=== PATIENT | female | born 1960 | race Caucasian/White ===

== ENCOUNTER 2017-06-27 12:31 | Emergency (ER) | payer BC ==
[2017-06-27 13:23] VITALS: BP 154/88
--- NOTE | 2017-06-27 14:30 | UC ---
Dizzy HPI HPI Summary: Patient presents to the with CC of dizziness while at work today. The episode came on suddenly when turning around too quickly. She states she felt like the room was spinning for approximately 1 minute and immediately after spontaneous resolution became nauseous. She denies any known healthy problems, but does not have a PCP. She denies any medication use and states she is otherwise healthy. She is tearful on exam. She states all brothers and mother and father all had HTN and cancers and all from such. She has never had these symptoms before and is concerned they may be d/t something more serious. She denies SOB, chest pain, BECERRIL. Has never had high BP, but today showed 154/88. - History Of Current Complaint Chief Complaint: UCDizziness Stated Complaint: NAUSEA Time Seen by Provider: 06/27/17 13:44 Hx Obtained From: Patient Hx Last Menstrual Period: n/a ?: No Onset/Duration: Sudden Onset Timing: Minutes Severity Initially: Moderate Severity Currently: Moderate Pain Intensity: 8 Pain Scale Used: 0-10 Numeric Character: Room Spinning, Dizzy Aggravating Factor(s): Position Change, Change In Head Position Alleviating Factor(s): Rest, Closing Eyes Associated Signs And Symptoms: Positive: Nausea - Risk Factors Cardiac Risk Factors: Negative CVA Risk Factor: Negative - Allergies/Home Medications Allergies/Adverse Reactions: Allergies Allergy/AdvReac Type Severity Reaction Status Date / Time No Known Allergies Allergy Verified 06/27/17 13:23 PMH/Surg Hx/FS Hx/Imm Hx Previously Healthy: Yes - Surgical History Surgical History: Yes Surgery Procedure, Year, and Place: HYSTERECTOMY , 2013, [facility]. APPENDECTOMY 1979 CSECTION, 1987. RIGHT KNEE, 2015 , [facility]. CATARACT -06/2016. MESH -LIFT ON BLADDER - FOR INCONTINENCE - Family History Known Family History: Positive: Blood Disorder - blood clots, father and brother - Social History Occupation: Employed Full-time Lives: With Family Alcohol Use: None Substance Use Type: None Smoking Status (MU): Former Smoker Amount Used/How Often: 1/2 PACK A DAY Have You Smoked in the Last Year: No When Did the Patient Quit Smoking/Using Tobacco: 10 YEARS - Immunization History Most Recent Influenza Vaccination: no Review of Systems Constitutional: Negative Skin: Negative ENT: Negative Respiratory: Negative Cardiovascular: Negative Gastrointestinal: Nausea Motor: Negative Neurovascular: Negative Neurological: Other - dizziness Psychological: Negative Is Patient Immunocompromised?: No All Other Systems Reviewed And Are Negative: Yes Physical Exam Triage Information Reviewed: Yes Appearance: Well-Appearing, Well-Nourished Vital Signs: Initial Vital Signs Temp 98 F 06/27/17 13:14 Pulse 98 06/27/17 13:14 Resp 18 06/27/17 13:14 BP 154/88 06/27/17 13:14 Pulse Ox 100 06/27/17 13:14 Vital Signs Reviewed: Yes Eye Exam: Normal Eyes: Positive: Conjunctiva Clear ENT Exam: Normal ENT: Positive: Normal ENT inspection Neck exam: Normal Neck: Positive: Supple, No Lymphadenopathy Respiratory Exam: Normal Respiratory: Positive: Chest non-tender, Lungs clear Cardiovascular Exam: Normal Cardiovascular: Positive: RRR Musculoskeletal Exam: Normal Musculoskeletal: Positive: Strength Intact Psychological Exam: Normal Psychological: Positive: Normal Response To Family Skin Exam: Normal Dizzy Course/Dx - Course Course Of Treatment: patient is evaluated for acute onset dizziness. she denies chest pain or dizziness. she is given an ekg in the . dizziness and nausea have completely resolved prior to arrival to . She is given meclizine in instance this occurs again. She is ok with discharge and she has an appt this sunday with a new PCP for full workup. - Differential Dx/Diagnosis Differential Diagnosis/HQI/PQRI: Other - vertigo, BPPV, dizziness Provider Diagnoses: Vertigo Discharge - Discharge Plan Condition: Stable Disposition: HOME Prescriptions: Meclizine TAB* [Antivert 12.5 TAB*] 25 mg PO TID #15 tab Patient Education Materials: Vertigo (ED) Referrals: No Primary Care Phys,NOPCP [Primary Care Provider] - Additional Instructions: Follow up with your PCP on Sunday as discussed Meclizine only as needed for any dizzy symptoms Today your EKG is normal.
== END 2017-06-27 14:33 | disposition home or self-care (01) ==
LOC: UCCORT 12:31
DX: R42 Dizziness and giddiness (principal)
CPT/HCPCS: 93005; 99212; G0463

== ENCOUNTER 2019-06-16 10:15 | Day surgery (SDC) | payer BC ==
[~2019-06-16 10:15] MED LIST: Acetaminophen TAB* 325 MG PO PRN
[2019-06-16] MEDS ORDERED: fentaNYL* 50 MCG/ML 2 ML VIAL (100 MCG VIAL) ONE (11:24)
[2019-06-16] MEDS ORDERED: Midazolam* 1 MG/ML 5 ML VIAL (5 MG) ONE (11:25)
[2019-06-16 12:24] VITALS: BP 145/82
--- NOTE | 2019-06-16 15:33 | OP ---
DATE OF OPERATION: 06/16/19 - [facility] DATE OF : 58 SURGEON: Delfin Wright MD ANESTHESIA: Monitored anesthesia care. PREOPERATIVE DIAGNOSIS: Cataract, left eye. POSTOPERATIVE DIAGNOSIS: Cataract, left eye. OPERATIVE PROCEDURE: Extracapsular cataract extraction of the left eye with intraocular lens implant. IMPLANT: SN60WF 18.5 diopter lens to the left eye. COMPLICATIONS: None. DESCRIPTION OF PROCEDURE: The patient was given phenylephrine 2.5 % and cyclopentolate 1% eye drops to the operative eye in the preoperative area. The patient was taken to the operating room where a time-out was taken to identify the correct patient, site, and side of surgery. The patient's left eye was prepped and draped in the usual sterile fashion with 5% Betadine. A second time- out was taken to verify the correct patient, side, and site of surgery, as well as the correct lens implant. A lid speculum was placed to the left eye. A 1mm paracentesis blade was used to make a clear corneal incision. Preservative-free 1% lidocaine was injected into the anterior chamber. DisCoVisc was then injected into the anterior chamber. A 2.75 mm keratome blade was used to make a triplanar incision. A cystotome initiated a capsulorrhexis, which was completed with Utrata forceps in a continuous and curvilinear manner. Hydrodissection of the lens was performed with BSS on a cannula. The lens could be spun in a capsular bag. The phacoemulsification handpiece was used with a divide-and- conquer technique to remove the nucleus. The I/A handpiece then removed the residual cortical lens material. DisCoVisc was injected to inflate the capsular bag. The planned SN60WF 18.5 diopter lens was injected into the capsular bag. The residual DisCoVisc was removed from the eye with the I/A handpiece. The corneal incisions were hydrated and no leaks occurred at physiologic pressure around 20 mmHg per palpation. The lid speculum was removed and drapes were removed. Maxitrol ointment was placed to the surface of the operative eye. An adhesive patch and shield was then placed on the operative eye. The patient was taken to the postoperative area in stable condition. [id number]/[facility] #: [id number] [facility]
[2019-06-16] MEDS ORDERED: Cyclopentolate 1% OPTH.SOL* 2 ML BTL ONE (15:48)
[2019-06-16] MEDS ORDERED: Povidone Iodine 5% OPTH* 30 ML BTL ONE (15:48)
[2019-06-16] MEDS ORDERED: Tropicamide 1% OPTH.SOL* BTL ONE (15:48)
[2019-06-16] MEDS ORDERED: Phenylephrine OPHTH SOL 2.5%* 2 ML ONE (15:48)
[2019-06-16] MEDS ORDERED: Tetracaine 0.5% OPTH.SOL 4 ML* 1 DROP BTL ONE (15:48)
[2019-06-16] MEDS ORDERED: Neomycin/Polymy/Dex OPHTH.OIN* 3.5 GM ONE (15:48)
[2019-06-16] MEDS ORDERED: acetaZOLAMIDE TAB* 250 MG ONE (15:48)
[2019-06-16] MEDS ORDERED: Ketorolac 0.5% OPHTH (NF) 0.5 % 5 ML BTL ONE (15:48)
[2019-06-16] MEDS ORDERED: Lidocaine 1% MPF ** 5 ML VIAL ONE (15:48)
== END 2019-06-16 12:35 | disposition home or self-care (01) ==
LOC: OREAST 10:15
PROVIDERS: ATTEND Student in an Organized Health Care Education/Training Program
DX: H25.12 Age-related nuclear cataract, left eye (principal); Z87.891 Personal history of nicotine dependence; M19.90 Unspecified osteoarthritis, unspecified site
CPT/HCPCS: A9270-GY; J2250; J3010; V2632